=== PATIENT | female | born 1950 | race Caucasian/White ===

== ENCOUNTER → 2016-05-22 | Outpatient (CLI) | payer MEDICARE, OTHER | LOC: KOH-I 08:41 | DX: M84.311 Stress fracture, right shoulder (principal); M25.511 Pain in right shoulder; S42.251D Displaced fracture of greater tuberosity of right humerus, subsequent encounter for fracture with routine healing; M24.111 Other articular cartilage disorders, right shoulder | CPT/HCPCS: 73221 ==

== ENCOUNTER 2016-08-25 15:14 | Emergency (ER) | payer MEDICARE, OTHER ==
[2016-08-25 17:00] LABS: HEMOGLOBIN 12.3 gm/dl (12.3-15.3); RED BLOOD COUNT 4.11 M/UL (4.00-5.10); WHITE BLOOD COUNT 9.4 K/UL (4.5-11.0)
== END 2016-08-25 19:38 | disposition home or self-care (01) ==
LOC: ER1 15:14
PROVIDERS: Family Medicine
DX: F41.9 Anxiety disorder, unspecified (principal); R10.9 Unspecified abdominal pain; G89.29 Other chronic pain; G40.909 Epilepsy, unspecified, not intractable, without status epilepticus; F17.200 Nicotine dependence, unspecified, uncomplicated; Z88.8 Allergy status to other drugs, medicaments and biological substances; Z79.899 Other long term (current) drug therapy; Z90.49 Acquired absence of other specified parts of digestive tract
CPT/HCPCS: 36415; 80053; 83690; 85025; 99283